=== PATIENT | female | born 1965 | race Caucasian/White ===

== ENCOUNTER 2020-01-13 13:24 | Emergency (ER) | payer MEDICARE, MEDICAID, SELFPAY ==
[2020-01-13 13:53] VITALS: BP 161/98; PULSE 81; RESP 18; TEMP 36.8; O2SAT 98; BMI 35.6
--- NOTE | 2020-01-13 14:04 | HMH.EDUTC ---
[facility] [place] Disposition Clinical Impression: URI (upper respiratory infection) Qualifiers: URI type: unspecified URI Qualified Code(s): J06.9 - Acute upper respiratory infection, unspecified Disposition: Home, Self-Care Condition on Discharge: Good Instructions: DI for Cough -- Adult, Cough, Sore Throat, Sinusitis, Diarrhea Additional Instructions: *Monitor Temp, Over the counter Motrin or Tylenol as directed/as needed Tylenol every 4 hours and Motrin every 6 hours (as long as your family doctor has told you that you can take it) for fever or pain. and straight to ER if unable to lower temp less than 101.0 after medication given *Warm salt water gargles may help to soothe the throat *Throat Lozenges *Warm fluids like tea with honey may help to soothe the throat *Sleep elevated *Humidifier/Vaporizer *Flonase 2 sprays in each nostril daily but be aware that it may take 2-3 days before you notice improvement Call back to the [facility] for your COVID test results on Friday to see if they are back You was given a handout for COVID instructions please make sure that you follow the instructions Follow up IMMEDIATELY for new or worsening symptoms or no Noticeable improvement over the next 48-72 hours. 911 for difficulty breathing or swallowing Prescriptions: lisinopriL [Lisinopril 20mg Tab] 20 mg PO DAILY 7 Days #7 tab Transmission Status: Sent to [facility] Azithromycin [Z-Reed 250mg Tab] 250 mg PO DIRECTED #6 tab Transmission Status: Pending to [facility] Referrals: PCP,No [Primary Care Provider] - As needed Time of Disposition: 14:36 Medical Decision Making - Gavino Inquiry Pt receiving controlled substance: No Gavino was queried for this patient: No Vital Signs: 01/13/20 13:53 Temperature 98.2 F Temperature Source Oral Pulse Rate [Right Brachial] 81 Respiratory Rate 18 Blood Pressure [Right Arm] 161/98 H Blood Pressure Mean [Right Arm] 119 Blood Pressure Source [Right Arm] Automatic Cuff Blood Pressure Position [Right Arm] Sitting 02 Sat by Pulse Oximetry 98 Oxygen Delivery Method Room Air Orders (Tests/Meds): ORDERS Category Date Time Status SARS-CoV-2, SUZY Stat Lab 01/13/20 13:41 Ordered Medical Decision Narrative: Patient reports that she took Lisinopril 20 mg daily and she has been out of her medication reports that she has appointment next with her PCP to get more medication, patient blood pressure elevated in todays visit patient given enough medication to get her through until her appointment next week [facility] [place] HPI - General Stated complaint: Headache; Nausea; Vomiting Time Seen by Provider: 01/13/20 14:04 Mode of Arrival: Ambulatory Source of Information: Patient Limitations: No Limitations Description of Symptoms (Recalled from Triage Doc. by RN): PATIENT C/O COUGH, SHORTNESS OF BREATH, HEADACHE, AND DIARRHEA X 2 DAYS. REQUESTING COVID TEST HEENT Symptoms (Recalled from RN notes): Yes Resp Symptoms (Recalled from RN notes): Yes Skin Symptoms (Recalled from RN notes): No MS Symptoms (Recalled from RN notes): No Functional Status (Recalled from RN notes): WNL - History of Present Illness Provider Complaint: Patient state that she came in to get tested for COVID19 States that she has been having sore throat, headache, nausea and diarrhea States that for the last several days she has had a dry cough and felt short of breath after coughing eppisode State that her cousin recently tested positive for COVID States that she is also out of her blood pressure medication and could not get into see her PCP until next week and wanted to see if she could get enough of her lisinopril to do her till then - Related Data Previous Rx's Medication Instructions Recorded Azithromycin [Z-Reed 250mg Tab] 250 mg PO DIRECTED #6 tab 01/13/20 lisinopriL [Lisinopril 20mg Tab] 20 mg PO DAILY 7 Days #7 tab 01/13/20 Allergies Allergy/AdvReac Type Severity Reaction Status Date / Time Penic
[2020-01-13 14:45] VITALS: BP 161/98; PULSE 81; RESP 18; TEMP 36.8; O2SAT 98
[2020-01-14 13:28] LABS: Covid-19 Nasal PCR Sendout Lex Not Detected
== END 2020-01-13 14:48 | disposition home or self-care (01) ==
PROVIDERS: Emergency Provider Nurse Practitioner
DX: J06.9 Acute upper respiratory infection, unspecified (principal); Z20.828 Contact with and (suspected) exposure to other viral communicable diseases; I10 Essential (primary) hypertension; Z88.0 Allergy status to penicillin; Z79.899 Other long term (current) drug therapy
CPT/HCPCS: 99201; U0004

== ENCOUNTER 2020-01-14 14:32 | Emergency (ER) | payer MEDICARE, MEDICAID, SELFPAY ==
[2020-01-14 14:33] VITALS: BP 127/82; PULSE 82; RESP 18; TEMP 36.7; O2SAT 97; BMI 34.0
--- NOTE | 2020-01-14 14:49 | XR_ITS ---
PROCEDURE: XR CHEST 2V CLINICAL HISTORY: WEAKNESS Unable to stand for long periods of time. COMPARISON: No exams were available for comparison FINDINGS: The lungs are somewhat under expanded. No acute bony abnormalities. The cardiomediastinal silhouette and pulmonary vascularity are within normal limits. There is no demonstrated consolidation, pulmonary vascular congestion or pleural effusion of the visualized lungs. A mildly elevated right hemidiaphragm. Surgical fusion instrumentation of the cervical spine. IMPRESSION: 1. No acute cardiopulmonary abnormality noted. Dictated by: Teresita Toribio 01/14/2020 15:22 Electronically signed by Teresita Toribio in [facility] 01/14/2020 15:22
--- NOTE | 2020-01-14 14:51 | HMH.EDGENADL ---
ED Disposition Clinical Impression: UTI (urinary tract infection) Qualifiers: Urinary tract infection type: site unspecified Hematuria presence: without hematuria Qualified Code(s): N39.0 - Urinary tract infection, site not specified Disposition: Home, Self-Care Condition on Discharge: Good Instructions: DI for Urinary Tract Infection (UTI) Additional Instructions: Stop taking Zithromax and start taking Omnicef. Additional instructions for URINARY TRACT INFECTION: See your physician in 2-3 days for follow up and culture results. Return immediately if you have an uncontrollable fever greater than 102 degrees, severe back or abdominal pain, inability to urinate, or repetitive vomiting. Prescriptions: Cefdinir [Omnicef 300mg Capsule] 300 mg PO BID #20 cap Transmission Status: Received by [facility] Referrals: Anthony Blanco MD [Primary Care Provider] - - Critical Care Critical Care Time: No Attestation: On , the high probability of a clinically significant, sudden or life threatening deterioration of the following system(s) required my full and direct attention, intervention and personal management. The time I documented below is in addition to time spent performing reported procedures but includes the following listed in this critical care notation. Medical Decision Making - Medical Records Medical records reviewed: Yes: I reviewed the patient's medical records. - Gavino Inquiry Pt receiving controlled substance: No Vital Signs: 01/14/20 14:33 01/14/20 15:00 01/14/20 15:38 Temperature 98.1 F 98.1 F Temperature Source Oral Oral Pulse Rate 77 Pulse Rate [Right] 82 77 Respiratory Rate 18 18 Blood Pressure 139/76 Blood Pressure [Right Arm] 127/82 139/76 Blood Pressure Mean [Right Arm] 97 97 Blood Pressure Source Automatic Cuff Blood Pressure Source [Right Arm] Automatic Cuff Automatic Cuff 02 Sat by Pulse Oximetry 97 97 Oxygen Delivery Method Room Air Room Air Room Air - Lab Data Lab results reviewed: Yes: I reviewed the patient's lab results. Lab Results 01/14/20 14:50: WBC 9.1, RBC 4.52, Hgb 14.3, Hct 42.4, MCV 93.8, MCH 31.6 H, MCHC 33.7, RDW 13.4, Plt Count 234, MPV 9.0, Neut % (Auto) 80.8 H, Lymph % (Auto) 15.0, [place] % (Auto) 3.9, Eos % (Auto) 0.1, Baso % (Auto) 0.2, Neut # (Auto) 7.4, Lymph # (Auto) 1.4, [place] # (Auto) 0.4, Eos # (Auto) 0.0, Baso # (Auto) 0.0 01/14/20 14:50: Sodium 143, Potassium 3.9, Chloride 103, Carbon Dioxide 30, Anion Gap 13.9, BUN 6 L, Creatinine 0.70, Estimated Creat Clear 155, Estimated GFR 88, Est GFR ( Amer) 106, Glucose 127 H, Calcium 9.8, Total Bilirubin 0.5, AST 27, ALT 19, Alkaline Phosphatase 80, Troponin I < 0.01, Total Protein 7.8, Albumin 4.3, Globulin 3.5 H, Albumin/Globulin Ratio 1.2 01/14/20 14:56: Urine Color Dk yellow, Urine Appearance Cloudy, Urine pH 6.0, Ur Specific [place] 1.025, Urine Protein Negative, Urine Glucose (UA) Negative, Urine Ketones Negative, Urine Blood Trace-i, Urine Nitrate Positive, Urine Bilirubin Negative, Urine Urobilinogen 2.0, Ur Leukocyte Esterase 1+ A, Urine RBC Occasional, Urine WBC 20-50, Ur Squamous Epith Cells Occasional, Urine Bacteria 4+ Result diagrams: 01/14/20 14:50 01/14/20 14:50 Orders (Tests/Meds): ED MEDICATIONS Discontinued Medications Generic Name Dose Route Start Last Admin Trade Name Freq PRN Reason Stop Dose Admin Sodium Chloride 1,000 mls @ 999 mls/hr 01/14/20 15:00 01/14/20 14:58 Sod Chlor 0.9% 1000ml Bag IV 01/14/20 16:00 999 mls/hr .Q1H1M GARRETT Administration Ceftriaxone Sodium 1 gm/ 50 mls @ 100 mls/hr 01/14/20 15:30 01/14/20 15:33 Sodium Chloride IV 01/14/20 15:59 100 mls/hr ONCE ONE Administration Protocol ORDERS Category Date Time Status XR chest 2V Stat Exams 01/14/20 14:49 Taken Urine Culture Stat Micro 01/14/20 14:56 Received - Radiology Data #1 Image(s): Chest Image Reviewed: Yes I have reviewed radiologist'
[2020-01-14 15:00] VITALS: BP 139/76; PULSE 77; O2SAT 97
--- NOTE | 2020-01-14 15:02 | ECG_ITS ---
APPROVED REPORT Exam: Resting ECG HR:76 bpm ECG Measurements Heart Rate 76 AXES ID 194 P 7 QRSd 84 QRS -28 QT 412 T -5 QTc 463 <Conclusion> Normal sinus rhythm Voltage criteria for left ventricular hypertrophy Nonspecific T wave abnormality Prolonged QT Abnormal ECG Electronically signed by : Gunner Landa, 01/16/2020 21:16:27
[2020-01-14 15:06] LABS: Microscopic, Urine URINE MICROSCOPIC (MICROSCOPIC)
[2020-01-14 15:07] LABS: Basophils % 0.2 % (0.1-2.0); Eosinophils % 0.1 % (0.1-12.0); Hematocrit 42.4 % (37.0-47.0); Hemoglobin 14.3 g/dL (12.2-16.2); Lymphocytes # 1.4 K/mm3 (0.7-4.5); Mean Corpuscular HGB Conc 33.7 g/dL (31.8-35.4); Mean Corpuscular Hemoglobin 31.6 pg (27.0-31.2); Mean Corpuscular Volume 93.8 fl (81-99); Monocytes # 0.4 K/mm3 (0.1-1.0); Monocytes % 3.9 % (1.7-9.3); Neutrophils # 7.4 K/mm3 (1.8-7.8); Neutrophils % 80.8 % (37.0-80.0); Platelet Count 234 K/mm3 (142-424); Red Blood Count 4.52 M/mm3 (4.20-5.40); Red Cell Distribution Width 13.4 % (11.5-17.5); White Blood Count 9.1 K/mm3 (4.8-10.8)
[2020-01-14 15:07] LABS: Appearance,Urine CLOUDY (Clear); Bilirubin,Urine Negative (Negative); Blood, Urine TRACE-I (Negative); Color,Urine DK YELLOW (Yellow); Glucose,Urine (UA) Negative (Negative); Ketones,Urine Negative (Negative); Leukocyte Esterase,Urine 1+ (Negative); Nitrate,Urine POSITIVE (Negative); Protein,Urine Negative (Negative); Specific Gravity, Urine 1.025 (1.005-1.030)
[2020-01-14 15:08] LABS: Chloride 103 mmol/L (98-107); Potassium 3.9 mmoL/L (3.5-5.1); Sodium 143 mmol/L (136-145)
[2020-01-14 15:11] LABS: Alanine Aminotransferase 19 U/L (12-78); Albumin Level 4.3 g/dl (3.5-5.0); Albumin/Globulin Ratio 1.2 (1.1-1.8); Alkaline Phosphatase 80 U/L (38-126); Anion Gap 13.9 mEq/L (5-15); Aspartate Amino Transferase 27 U/L (14-36); Bilirubin,Total 0.5 mg/dl (0.2-1.3); Blood Urea Nitrogen 6 mg/dl (7-17); Carbon Dioxide 30 mmol/L (22.0-30.0); Creatinine Clearance Estimated 155 mL/min (50-200); Estimated Glomerular Filt Rate 88 ml/min (>60); GFR (African American) 106 ML/MIN (>60); Globulin 3.5 g/dL (1.3-3.2); Total Protein,Serum 7.8 g/dl (6.3-8.2)
[2020-01-14 15:12] LABS: Calcium 9.8 mg/dl (8.4-10.2); Glucose 127 mg/dl (74-100)
[2020-01-14 15:14] LABS: Bacteria,Urine 4+ /lpf; RBC,Urine Occasional #/hpf (0-3); Squamous Epithelial Cell,Urine Occasional #/hpf (0-5); WBC,Urine 20-50 #/hpf (0-3)
[2020-01-14 15:27] LABS: Troponin I < 0.01 ng/ml (0.00-0.034)
[2020-01-14 15:38] VITALS: BP 139/76; PULSE 77; RESP 18; TEMP 36.7; O2SAT 97
== END 2020-01-14 15:45 | disposition home or self-care (01) ==
PROVIDERS: Emergency Provider Emergency Medicine; PCP Nurse Practitioner Obstetrics & Gynecology
DX: N30.00 Acute cystitis without hematuria (principal); I10 Essential (primary) hypertension; Z88.0 Allergy status to penicillin; Z79.899 Other long term (current) drug therapy
CPT/HCPCS: 71046; 80053; 81001; 84484; 85025; 87086; 87088; 87186; 93005; 96365; 96366; 96367; 96374; 99283

== ENCOUNTER 2023-07-07 14:20 | Emergency (ER) | payer MEDICARE, MEDICAID, SELFPAY ==
[2023-07-07 14:20] VITALS: BP 194/79; PULSE 78; RESP 20; TEMP 37.1; O2SAT 96; BMI 29.7
--- NOTE | 2023-07-07 14:23 | XR_ITS ---
FINAL REPORT CLINICAL HISTORY: fall, pain, hip replacement 4 days ago COMPARISON: None FINDINGS: RIGHT FEMUR: Views of the right femur reveal superior dislocation of the acetabular and femoral components of the patient's right total hip replacement. Numerous ossific fragments are noted adjacent to the acetabulum. The right femur itself is intact without evidence of fracture. There is marked degenerative change in the right knee with marked narrowing of the patellofemoral compartment and bony spurs. impression: Superior dislocation of the acetabular and femoral components of the patient's right total hip replacement. The femur itself reveals postoperative change but no acute fracture. Reviewed, Interpreted and Dictated by Az Dill MD Transcribed by Massiel Chambers Authenticated and . [facility]
--- NOTE | 2023-07-07 14:23 | CT_ITS ---
FINAL REPORT CLINICAL HISTORY: fall, pain, hip replacement 4 days ago FINDINGS: Axial images through the pelvis were performed by computed tomography. Sagittal and coronal reconstruction images were performed. This study was performed with techniques to keep radiation doses as low as reasonably achievable (ALARA). Individualized dose reduction techniques using automated exposure control or adjustment of mA and/or kV according to the patient's size were employed. The patient has undergone a recent total hip arthroplasty on the right side. There is superior dislocation of both the acetabular and femoral components of the hip arthroplasty, with fragmentation of bone involving the acetabulum, and the posterior rim. There is soft tissue air identified, likely secondary to the recent surgical procedure. IMPRESSION: Recent total hip arthroplasty on the right side, with superior dislocation of both the acetabular and femoral components and fragmentation of the bone involving the acetabulum and the posterior rim. Reviewed, Interpreted and Dictated by Davonte Espinoza MD Transcribed by Massiel Chambers Authenticated and [facility]
--- NOTE | 2023-07-07 14:23 | CT_ITS ---
FINAL REPORT TECHNIQUE: Axial CT images were performed through the head. Coronal and sagittal reformatted images were submitted. This study was performed with techniques to keep radiation doses as low as reasonably achievable (ALARA). Individualized dose reduction techniques using automated exposure control or adjustment of mA and/or kV according to the patient's size were employed. CLINICAL HISTORY: fall, pain, hip replacement 4 days ago COMPARISON: None FINDINGS: The ventricles are normal in size. There is no evidence of hemorrhage. There is no mass or edema identified. There is no abnormal extra-axial fluid seen. There is minimal right maxillary mucoperiosteal thickening present. IMPRESSION: No acute intracranial process. Reviewed, Interpreted and Dictated by zA Dill MD Transcribed by Massiel Chambers Authenticated and [facility]
--- NOTE | 2023-07-07 14:23 | CT_ITS ---
FINAL REPORT TECHNIQUE: Axial CT images of the cervical spine were obtained without contrast. Sagittal and coronal reformatted images were also obtained. This study was performed with techniques to keep radiation doses as low as reasonably achievable (ALARA). Individualized dose reduction techniques using automated exposure control or adjustment of mA and/or kV according to the patient''s size were employed. CLINICAL HISTORY: fall, pain, hip replacement 4 days ago COMPARISON: None FINDINGS: Anterior and interbody fusion at C6-7. Advanced disc space narrowing at C3-4, C4-5, and C5-6 with prominent anterior osteophyte formation at C4-5 and C5-6. There is no malalignment. C2-3: No significant spinal canal compromise or neural foraminal narrowing. C3-4: No significant spinal canal compromise or neural foraminal narrowing. C4-5: Moderate endplate hypertrophy. Moderate to high-grade bilateral neural foraminal narrowing. C5-6: Mild posterior osteophyte formation. Mild bilateral neural foraminal narrowing. C6-7: Moderate posterior osteophyte formation. Mild spinal canal compromise. [id number] bilateral neural foraminal narrowing. C7-T1: No significant spinal canal compromise or neural foraminal narrowing. IMPRESSION: Fusion at C6-7. Hypertrophic changes and neural foraminal compromise most evident at C4-5. Reviewed, Interpreted and Dictated by Az Dill MD Transcribed by Melany Balderrama Authenticated and [facility]
--- NOTE | 2023-07-07 14:23 | XR_ITS ---
FINAL REPORT CLINICAL HISTORY: fall, pain, hip replacement 4 days ago COMPARISON: None FINDINGS: AP and lateral views of the right knee were obtained. There is no prior exam for comparison. There is no acute osseous abnormality of the right knee. There is severe patellofemoral joint and medial and lateral compartment degenerative narrowing. Prominent osteophytes are noted, particularly projecting from the posterior surface of the patella. The soft tissues are normal. There is no joint effusion. IMPRESSION: No acute osseous abnormality of the right knee. Severe tricompartment degenerative change of the right knee. Reviewed, Interpreted and Dictated by Az Dill MD Transcribed by Massiel Chambers Authenticated and [facility]
--- NOTE | 2023-07-07 14:23 | XR_ITS ---
FINAL REPORT CLINICAL HISTORY: fall, pain, hip replacement 4 days ago COMPARISON: None FINDINGS: RIGHT HIP 2 VIEWS: Views of the right hip reveal superior dislocation of the acetabular and femoral components of the patient's total hip replacement. Multiple ossific fragments are identified. There are postoperative changes from a prior right abdominal hernia repair. IMPRESSION: Superior dislocation of the acetabular and femoral components of the patient's total hip replacement. Multiple ossific fragments are identified. Reviewed, Interpreted and Dictated by Az Dill MD Transcribed by Massiel Chambers Authenticated and [facility]
--- NOTE | 2023-07-07 14:23 | XR_ITS ---
FINAL REPORT CLINICAL HISTORY: fall, pain, hip replacement 4 days ago COMPARISON: 01/14/2020 FINDINGS: A single portable view of the chest was obtained. Metallic hardware is present in the lower cervical spine consistent with an anterior cervical fusion. The heart size and pulmonary vascularity are within normal limits. The mediastinum is within normal limits. No acute pulmonary abnormality is identified. The bony thorax is intact. IMPRESSION: No active cardiopulmonary disease. Reviewed, Interpreted and Dictated by Az Dill MD Transcribed by Massiel Chambers Authenticated and [facility]
[2023-07-07] MEDS: MORPHINE 4MG/ML SYRINGE 4 MG IV (14:34)
[2023-07-07] MEDS: ONDANSETRON 4MG/2ML VIAL 4 MG IV (14:35)
[2023-07-07 14:40] LABS: Alanine Aminotransferase 22 U/L (12-78); Albumin Level 3.3 g/dl (3.5-5.0); Albumin/Globulin Ratio 1.1 (1.1-1.8); Alkaline Phosphatase 99 U/L (38-126); Anion Gap 11.5 mEq/L (5-15); Aspartate Amino Transferase 28 U/L (14-36); Bilirubin,Total 0.8 mg/dl (0.2-1.3); Blood Urea Nitrogen 5 mg/dl (7-17); Calcium 8.4 mg/dl (8.4-10.2); Carbon Dioxide 25 mmol/L (22.0-30.0); Chloride 107 mmol/L (98-107); Creatinine Clearance Estimated 176 mL/min (50-200); Estimated Glomerular Filt Rate 128 ml/min (>60); GFR (African American) 154 ML/MIN (>60); Globulin 3.1 g/dL (1.3-3.2); Glucose 136 mg/dl (74-100); Potassium 3.5 mmoL/L (3.5-5.1); Sodium 140 mmol/L (136-145); Total Protein,Serum 6.4 g/dl (6.3-8.2)
--- NOTE | 2023-07-07 14:40 | PC.NURSE ---
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
--- NOTE | 2023-07-07 14:47 | PC.NURSE ---
PT GONE TO CT
[2023-07-07 14:49] LABS: Basophils % 0.1 % (0.1-2.0); Eosinophils % 0.4 % (0.1-12.0); Hematocrit 33.7 % (37.0-47.0); Hemoglobin 11.1 g/dL (12.2-16.2); Lymphocytes # 1.1 K/mm3 (0.7-4.5); Lymphocytes % 10.1 % (10-50); Mean Corpuscular HGB Conc 32.9 g/dL (31.8-35.4); Mean Corpuscular Hemoglobin 30.5 pg (27.0-31.2); Mean Corpuscular Volume 92.7 fl (81-99); Mean Platelet Volume 8.2 fl (7.4-10.4); Monocytes # 0.4 K/mm3 (0.1-1.0); Monocytes % 3.9 % (1.7-9.3); Neutrophils # 9.6 K/mm3 (1.8-7.8); Neutrophils % 85.7 % (37.0-80.0); Platelet Count 391 K/mm3 (142-424); Red Blood Count 3.64 M/mm3 (4.20-5.40); Red Cell Distribution Width 14.6 % (11.5-17.5); White Blood Count 11.2 K/mm3 (4.8-10.8)
[2023-07-07 14:50] LABS: MANUAL DIFFERENTIAL MANUAL DIFFERENTIAL (MANUAL DIFF)
[2023-07-07 15:10] LABS: Lymphocytes % 9 % (10-50); Monocytes % 1 % (2-9); Neutrophils % 90 % (42-76); Platelet Estimate Normal; RBC Morphology Normal; Total Cells Counted 100
--- NOTE | 2023-07-07 15:10 | PC.NURSE ---
Pt returned from CT
[2023-07-07 15:14] VITALS: BP 189/78; PULSE 65; O2SAT 96
--- NOTE | 2023-07-07 15:14 | PC.NURSE ---
jean marie paged for Dr. Cano.
--- NOTE | 2023-07-07 15:19 | ED_ITS ---
Discharge Plan Disposition Patient Disposition: Xfer Short-Term Hosp Condition: Good Prescriptions Prescriptions: No Action buprenorphine-naloxone [Suboxone] 8-2 mg film 1 film BUCCAL DAILY estradiol [Estrace] 1 mg tablet 1 mg PO DAILY Qty: 30 11RF lisinopril 20 MG tablet 20 mg PO DAILY Referrals Follow up/Referrals: Provider,Referral, [Primary Care Provider] - See instructions Clinical Impressions Clinical Impression: Dislocation of right hip, Closed fracture of acetabulum with dislocation of hip Discharge ED Provider: Zahira Cano General Adult HPI General Chief complaint: Extremity Injury, Lower Stated complaint: Rt hip pain Time Seen by Provider: 07/07/23 14:21 Mode of Arrival: EMS Source of Information: Patient and EMS Limitations: No Limitations Description of Symptoms (Recalled from ER Triage Doc. by RN): pt had right hip replacement on this past with Dr. Nogueira at [facility]. per ems patient was trying to get up from chair and walker gave out from under her tripping her up. pt denies loc or head injury. pt states she has not had any pain meds today besides what ems gave her 2 mg of morphine, per ems there was ETOH in the surroundings but patient denies any use. History of Present Illness HPI narrative: This patient is a 58-year-old female who denies significant past medical history presenting to the emergency department for evaluation with concern for right hip pain. Patient had her right hip replaced at [facility] 4 days ago. She states that she got up from her chair trying to use her walker to am bulate when the walker went out from underneath her. She landed directly on her right hip. She was unable to get up and complained of severe pain after this. EMS noted that there was alcohol by the patient on scene, but she denies any alcohol or drug use. Patient denies any other pain or injuries. She does not take any anticoagulation. Related Data Home Medications Medication Instructions Recorded Confirmed lisinopril 20 mg tablet 20 mg PO DAILY High blood pressure 01/14/20 01/19/20 buprenorphine 8 mg-naloxone 2 mg 1 film buccal DAILY 01/19/20 01/19/20 sublingual film (Suboxone) Previous Rx's Medication Instructions Recorded estradiol 1 mg tablet (Estrace) 1 mg PO DAILY #30 tabs 01/19/20 Allergies Allergy/AdvReac Type Severity Reaction Status Date / Time Penicillins Allergy Verified 01/19/20 09:00 [facility] Disclaimer: The information contained in this section may have been updated after the patient was seen, as this information can be updated by other users. Social History Smoking Status: Never smoker alcohol intake: never current occupational status: disabled Travel in the last 8 weeks: None ROS Obtained: Yes All systems reviewed & no additional complaints except as documented Physical Exam General General appearance: alert Comment: Very uncomfortable appearing Head Head exam: atraumatic and normocephalic Eye Eye exam: Present normal appearance, PERRL and EOMI ENT ENT exam: Present normal exam, normal oropharynx, mucous membranes moist and normal external ear exam Neck Neck exam: Present normal inspection, full ROM and trachea midline; Absent tenderness Chest Chest inspection: Present normal inspection and symmetric chest wall rise; Absent tenderness Respiratory Respiratory exam: Present normal lung sounds bilaterally; Absent respiratory distress, wheezes, stridor or accessory muscle use Cardiovascular Cardiovascular exam: Present regular rate and normal rhythm Abdominal Exam Abdominal exam: Present soft; Absent distention, tenderness or guarding Extremities Exam Extremities exam: Present full ROM, tenderness, normal capillary refill and other (Shortened and rotated right lower extremity with significant pain. Limited range of motion secondary to pain. Neurovascularly intact distally with good pulses and sensation.); Absent edema Back Exam Back exam: Present normal inspection and full ROM; Absent tenderness Neurological Exam Neurological exam: Present alert, oriented X3, CN II-XII intact and normal gait; Absent motor sensory deficit Psychiatric Psychiatric exam: Present normal affect and normal mood Skin Skin exam: Present warm and dry Medical Decision Making Medical Records Medical records reviewed: Yes I reviewed the patient's medical records. Gavino Inquiry Pt receiving controlled substance: No Vital Signs: 07/07/23 14:20 07/07/23 15:14 Temperature 98.8 F Temperature Source Oral Pulse Rate 65 Pulse Rate [Right Radial] 78 Respiratory Rate 20 Blood Pressure 189/78 H Blood Pressure [Right Arm] 194/79 H Blood Pressure Mean [Right Arm] 117 02 Sat by Pulse Oximetry 96 96 Oxygen Delivery Method Room Air Room Air Lab Data Lab results reviewed: Yes I reviewed the patient's lab results. Lab Results 07/07/23 14:20: WBC 11.2 H, RBC 3.64 L, Hgb 11.1 L, Hct 33.7 L, MCV 92.7, MCH 30.5, MCHC 32.9, RDW 14.6, Plt Count 391, MPV 8.2, Neut % (Auto) 85.7 H, Lymph % (Auto) 10.1, Jess[place] % (Auto) 3.9, Eos % (Auto) 0.4, Baso % (Auto) 0.1, Neut # (Auto) 9.6 H, Lymph # (Auto) 1.1, Jess[place] # (Auto) 0.4, Eos # (Auto) 0.0, Baso # (Auto) 0.0, Total Counted 100, Neutrophils % (Manual) 90 H, Lymphocytes % (Manual) 9 L, Monocytes % (Manual) 1 L, Platelet Estimate Normal, RBC Morphology Normal, Sodium 140, Potassium 3.5, Chloride 107, Carbon Dioxide 25, Anion Gap 11.5, BUN 5 L, Creatinine 0.50 L, Estimated Creat Clear 176, Estimated GFR 128, Est GFR ( Amer) 154, Glucose 136 H, Calcium 8.4, Total Bilirubin 0.8, AST 28, ALT 22, Alkaline Phosphatase 99, Total Protein 6.4, Albumin 3.3 L, Globulin 3.1, Albumin/Globulin Ratio 1.1 07/07/23 14:20 07/07/23 14:20 Orders (Tests/Meds): ED MEDICATIONS Discontinued Medications Generic Name Dose Route Start Last Admin Trade Name Freq PRN Reason Stop Dose Admin Hydromorphone HCl 2 mg 07/07/23 15:23 07/07/23 15:36 Hydromorphone 2mg/Ml Syringe IV 07/07/23 15:24 2 mg ONCE ONE Administration Morphine Sulfate 4 mg 07/07/23 14:23 07/07/23 14:34 Morphine 4mg/Ml Syringe IV 07/07/23 14:24 4 mg ONCE ONE Administration Ondansetron HCl 4 mg 07/07/23 14:23 07/07/23 14:35 Ondansetron 4mg/2ml Vial IV 07/07/23 14:24 4 mg ONCE ONE Administration ORDERS Category Date Time Status CT bony pelvis Stat Cat Scan 07/07/23 14:[address] cervical spine wo con Stat Cat Scan 07/07/23 14:[address] head/brain wo con Stat Cat Scan 07/07/23 14:23 Taken XR chest portable Stat Exams 07/07/23 14:23 Taken XR femur RT 2V Stat Exams 07/07/23 14:23 Taken XR hip RT 2-3V w/pelvis Stat Exams 07/07/23 14:23 Taken XR knee RT 3V Stat Exams 07/07/23 14:23 Taken Complete Blood Count Auto Diff Stat Lab 07/07/23 14:20 Completed Comprehensive Metabolic Panel Stat Lab 07/07/23 14:20 Completed Medical Decision Narrative: In summary, this patient is a 58-year-old female presenting to the Emergency Department for evaluation of right hip pain after a fall. Differential diagnoses considered include but are not limited to fracture, dislocation, postoperative pain, neurovascular injury. Ruling out the most morbid conditions drove assessment. On exam, the patient is neurovascularly intact in her right lower extremity without any other acute injuries noted. Workup included CBC, CMP, CT head without contrast, CT C-spine without contrast, and CT of the pelvis as well as x-rays of the injured right lower extremity.. I independently interpreted x-ray and CT prior to the radiologist read and noted right hip dislocation with an acetabular fracture dislocation. Please see their read for final interpretation. She was given IV morphine and Zofran for symptomatic improvement of pain, however her pain continues that she was given IV Dilaudid. I called and had an interactive discussion with our orthopedist who recommended calling her surgeon. I called and talked to Dr. Nogueira who formed her surgery, and he advised that he would send her to [facility] for complete acetabular reconstruction by joint specialist. I called our orthopedist Dr. Win who advised that he would not attempt reduction, as it would likely make the situation worse as opposed to better and could displace bony fragments. He also noted that it would likely be too unstable and require intraoperative reduction. I called and had an interactive discussion with [facility] who graciously 7 the patient for further evaluation and management. Dr. Coffey accepted the patient to the [facility] ED for orthopedic evaluation. She was neurovascularly intact at the time of transfer. Critical Care Critical Care Time Critical Care Time: No
--- NOTE | 2023-07-07 15:20 | PC.NURSE ---
Dr. Cano speaking with Dr. Win
[2023-07-07] MEDS: HYDROMORPHONE 2MG/ML SYRINGE 2 MG IV (15:36)
--- NOTE | 2023-07-07 15:48 | PC.NURSE ---
Dr. Win advised he would like for us to reach out to Dr. Nogueira. Dr. Nogueira to call back when available.
--- NOTE | 2023-07-07 15:52 | PC.NURSE ---
Dr. Cano speaking with Dr. Nogueira
--- NOTE | 2023-07-07 16:05 | PC.NURSE ---
Dr. Phillips advised pt be transfereed to due to severity. Dr. Cano speaking with Krista Nascimento NP at this time
--- NOTE | 2023-07-07 16:07 | PC.NURSE ---
Pt accepted to [facility] per Krista Nascimento
--- NOTE | 2023-07-07 16:21 | PC.NURSE ---
spoke with adrián in pharmacy regarding a pain dose of ketamine for patient. then called ER pharmacy and got the protcol/instructions and placed order here for patient pain control. per ER MD patient is to be on cardiac rehab nurse and it is given over one minute IVP and no nurse is required to stay in room with patient
[2023-07-07] MEDS: KETAMINE 50MG/1ML SYRINGE 26 MG IV (16:30)
--- NOTE | 2023-07-07 16:33 | PC.NURSE ---
called report to [facility] josé antonio oliver and answered all questions
--- NOTE | 2023-07-07 16:36 | PC.NURSE ---
Notified [facility] of pt transfer to [facility]
[2023-07-07] MEDS: HYDROMORPHONE 2MG/ML SYRINGE 1 MG IV (17:30)
[2023-07-07 17:33] VITALS: BP 170/90; PULSE 92; RESP 19; TEMP 36.7; O2SAT 96
== END 2023-07-07 17:34 | disposition short-term general hospital (02) ==
PROVIDERS: Emergency Provider Emergency Medicine
DX: M97.01XA Periprosthetic fracture around internal prosthetic right hip joint, initial encounter (principal); M25.551 Pain in right hip; W01.0XXA Fall on same level from slipping, tripping and stumbling without subsequent striking against object, initial encounter
CPT/HCPCS: 70450; 71045; 72125; 72192; 73502; 73552; 73562; 80053; 85007; 85025; 96374; 96375; 99285; J2405